=== PATIENT | female | born 1985 | race American Indian/Alaskan Native ===

== ENCOUNTER 2018-04-02 07:22 | Emergency (ER) | payer OTHER ==
[2018-04-02] MEDS ORDERED: NACL 0.9% 1000 ML 1,000 ML ONE (07:36)
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
[2018-04-02] MEDS ORDERED: NACL 0.9% 1000 ML 1,000 ML IV ONE ×2 (08:01)
[2018-04-02 08:19] LABS: Hematocrit 27.2 % (30.3-42.9); Hemoglobin 8.5 gm/dl (10.1-14.3); Mean Corpuscular HGB Conc 31 % (30-34); Mean Corpuscular Volume 80 fl (79-97); Platelet Count 206 K/mm3 (140-440); Red Blood Count 3.42 M/mm3 (3.65-5.03); Red Cell Distribution Width 18.6 % (13.2-15.2)
[2018-04-02 08:22] LABS: Bacteria,Urine 1+ /HPF (Negative); Bilirubin,Urine NEG (Negative); Blood,Urine SM (Negative); Color,Urine Yellow (Yellow); HCG Qualitative,Urine Negative (Negative); Mucus,Urine FEW /HPF; Protein,Urine <15 mg/dL mg/dL (Negative); Urobilinogen,Urine < 2.0 mg/dL (<2.0)
[2018-04-02 08:29] LABS: INR 1.34 (0.87-1.13); Mean Corpuscular Hemoglobin 25 pg (28-32)
[2018-04-02 08:29] LABS: Amphetamine Screen,Urine PRESUMPTIVE NEGATIVE; Benzodiazepines Screen,Urine PRESUMPTIVE NEGATIVE; Cannabinoid Screen,Urine PRESUMPTIVE NEGATIVE; Cocaine Screen,Urine PRESUMPTIVE NEGATIVE; Methadone Screen,Urine PRESUMPTIVE NEGATIVE; Opiate Screen,Urine PRESUMPTIVE NEGATIVE
[2018-04-02 08:30] LABS: Partial Thromboplastin Time 38.6 Sec. (24.2-36.6)
[2018-04-02 08:39] LABS: Alanine Aminotransferase 76 units/L (7-56); BUN/Creatinine Ratio 10; Blood Urea Nitrogen 10 mg/dL (7-17); Calcium 7.2 mg/dL (8.4-10.2); Hemolysis Index 23
[2018-04-02 09:25] LABS: Basophils % (Manual) 0 % (0.0-1.8); Total Cells Counted 100
[2018-04-02 09:26] LABS: Anisocytosis 1+; Hypochromasia 1+; Platelet Estimate Consistent w Auto
[2018-04-02] MEDS ORDERED: SODIUM BICARBONATE IV ONE (22:34)
[2018-04-02] MEDS ORDERED: ADRENALIN ONE ×2 (22:34)
== END 2018-04-02 08:45 ==
LOC: ED 07:22
DX: I46.9 Cardiac arrest, cause unspecified (principal); S81.011A Laceration without foreign body, right knee, initial encounter; S01.01XA Laceration without foreign body of scalp, initial encounter; F10.10 Alcohol abuse, uncomplicated; V89.2XXA Person injured in unspecified motor-vehicle accident, traffic, initial encounter; Y93.89 Activity, other specified; Y92.488 Other paved roadways as the place of occurrence of the external cause; Y99.8 Other external cause status
CPT/HCPCS: 36415; 80053; 80307; 81001; 81025; 82962; 85007; 85025; 85610; 85730; 99291; G0480; J0171; J7030; 80320; 96360; 99285